=== PATIENT | female | born 1995 | race African-American/Black ===

== ENCOUNTER 2018-01-20 07:06 | Emergency (ER) | payer OTHER ==
[~2018-01-20] VITALS: Ht 160 cm; Wt 53.1 kg
[2018-01-20 07:11] VITALS: BP 108/65
== END 2018-01-20 07:50 | disposition home or self-care (01) ==
LOC: ER 07:06
DX: F31.9 Bipolar disorder, unspecified (principal); F17.210 Nicotine dependence, cigarettes, uncomplicated